=== PATIENT | male | born 1995 | race Caucasian/White ===

== ENCOUNTER 2017-05-04 16:26 | Emergency (ER) | payer MEDICAID ==
[~2017-05-04] VITALS: Ht 167.6 cm; Wt 64.4 kg
[2017-05-04 16:32] VITALS: BP 144/87; PULSE 100; RESP 18; TEMP 98; O2SAT 100
--- NOTE | 2017-05-04 17:08 | PD ---
HPI Chief Complaint: Skin Problem Time Seen by Provider: 17:08 Travel History International Travel<30 days: No Contact w/Intl Traveler<30days: No Traveled to known affect area: No PFSH Past Medical History Anxiety: Yes Depression: Yes Chest Pain: No Coronary Artery Disease: No Diabetes: No Diminished Hearing: No Musculoskeletal: Yes (lt shoulder ) Immunizations Current: Yes Past Surgical History Other Surgery: Yes (lt shoulder 2013) Social History Alcohol Use: Yes (beer occ) Tobacco Use: Yes (2 PPD) Substance Use: Yes (K2, liza in past per old record) Allergies-Medications (Allergen,Severity, Reaction): Coded Allergies: No Known Allergies (Verified , 10/20/16) Reported Meds & Prescriptions Reported Meds & Active Scripts Active No Active Prescriptions or Reported Medications Data Data Last Documented VS Vital Signs Date Time Temp Pulse Resp B/P (MAP) Pulse Ox O2 Delivery O2 Flow Rate FiO2 05/04/17 16:32 98.0 100 18 144/87 (106) 100 MDM Scripts No Active Prescriptions or Reported Meds Michelle Boland MD May 04, 2017 17:08
--- NOTE | 2017-05-04 17:16 | PD ---
HPI Chief Complaint: Skin Problem Time Seen by Provider: 17:20 Travel History International Travel<30 days: No Contact w/Intl Traveler<30days: No Traveled to known affect area: No History of Present Illness HPI 21-year-old male assessed to the emergency department complaining of a rash that started on his left elbow and has spread to other parts of his body to include his right axilla, back, bilateral arms. This started about 1-1/2 weeks ago and he is concerned about a staph infection. States it is mildly pruritic, nonpainful and non-blistering. He denies any new soaps, foods, travel, IVDU. Says his hygiene is good, denies any new furniture or linen, and lives alone. Denies fever, chills, chest pain, nausea, vomiting, diarrhea. This is the first occurrence. PFSH Past Medical History Anxiety: Yes Depression: Yes Chest Pain: No Coronary Artery Disease: No Diabetes: No Diminished Hearing: No Musculoskeletal: Yes (lt shoulder ) Immunizations Current: Yes Past Surgical History Other Surgery: Yes (lt shoulder 2013) Social History Alcohol Use: Yes (beer occ) Tobacco Use: Yes (2 PPD) Substance Use: Yes (K2, liza in past per old record) Allergies-Medications (Allergen,Severity, Reaction): Coded Allergies: No Known Allergies (Verified , 10/20/16) Reported Meds & Prescriptions Reported Meds & Active Scripts Active Nystop Topical (Nystatin Topical) 100,000 Unit/Gm Powd 1 Applic TOPICAL Q12HR Use powder in armpits and groin Bactrim DS (Sulfamethoxazole-Trimethoprim) 800-160 Mg Tab 1 Tab PO BID Review of Systems Except as stated in HPI: all other systems reviewed are Neg Physical Exam Narrative GENERAL: Well-developed well-nourished SKIN: Focused skin assessment warm/dry. Face: multiple areas of papules, irritation, erythema without excoriations. Left posterior elbow: 1-3 cm plaques becoming confluent without lymphangiopathic spread. Right axilla: Multiple lesions approximately 5 mm raised in a 7 cm area, with small lesions steading outward. Left lower back/hip: Similar appearance to elbow with scabbing. Mild excoriations without evidence of cellulitis. No obvious burrows interdigital areas HEAD: Atraumatic. Normocephalic. EYES: Pupils equal and round. No scleral icterus. No injection or drainage. ENT: No nasal bleeding or discharge. Mucous membranes pink and moist. No lesions present. NECK: Trachea midline. No JVD. CARDIOVASCULAR: Regular rate and rhythm. No murmur appreciated. RESPIRATORY: No accessory muscle use. Clear to auscultation. Breath sounds equal bilaterally. GASTROINTESTINAL: Abdomen soft, non-tender, nondistended. Hepatic and splenic margins not palpable. MUSCULOSKELETAL: No obvious deformities. No clubbing. No cyanosis. No edema. NEUROLOGICAL: Awake and alert. No obvious cranial nerve deficits. Motor grossly within normal limits. Normal speech. PSYCHIATRIC: Appropriate mood and affect; insight and judgment normal. Data Data Last Documented VS Vital Signs Date Time Temp Pulse Resp B/P (MAP) Pulse Ox O2 Delivery O2 Flow Rate FiO2 05/04/17 16:32 98.0 100 18 144/87 (106) 100 MDM Medical Decision Making Medical Screen Exam Complete: Yes Emergency Medical Condition: Yes Differential Diagnosis Staphylococcal skin infection versus allergic dermatitis versus contact dermatitis Narrative Course 21-year-old male here or evaluation of a rash x one and half weeks. He has not tried anything at home to relieve his rash On exam the left posterior elbow exhibited scaling, mild erythema without lymphangitic Spread. Other portions include his left lower back with a similar appearance to his elbow. Right axilla demonstrated multiple erythematous lesions consistent with consistent with intertrigo Was take all antibiotics as prescribed. Powder for his axilla. Sling Operator and primary care physician for follow-up Advised to return to the emergency department if symptoms worsen. Diagnosis Primary Impression: Rash and nonspecific skin eruption Referrals: Sling Operator Primary Care Physician Additional Instructions: Use an antibacterial soap daily to cleanse the skin. Use the powder for your arm pits. Take all All antibiotics as prescribed. Follow up with a cash register mechanic and your primary care physician. If skin becomes more red, swelling or pus develops or if you develop fever or chills return to the emergency department for further treatment and evaluation Scripts Nystatin Topical (Nystop Topical) 100,000 Unit/Gm Powd 1 APPLIC TOPICAL Q12HR for Infection, #15 GM 0 Refills Use powder in armpits and groin Prov: Michelle Boland MD 05/04/17 Sulfamethoxazole-Trimethoprim (Bactrim DS) 800-160 Mg Tab 1 TAB PO BID for Infection, #14 TAB 0 Refills Prov: Michelle Boland MD 05/04/17 Disposition: 01 DISCHARGE HOME Condition: Stable Krystal Harp May 04, 2017 17:16
[2017-05-04] MEDS ORDERED: NYST10007 TOPICAL (17:18)
[2017-05-04] MEDS ORDERED: BACT800T5 PO (17:18)
== END 2017-05-04 17:42 | disposition home or self-care (01) ==
LOC: PHED 16:26
DX: R21 Rash and other nonspecific skin eruption (principal); F17.210 Nicotine dependence, cigarettes, uncomplicated
CPT/HCPCS: 99284

== ENCOUNTER 2017-10-03 03:16 | Emergency (ER) | payer MEDICAID, OTHER ==
[~2017-10-03] VITALS: Ht 172.7 cm; Wt 60.0 kg
[~2017-10-03 03:16] MED LIST: BACT800T5 PO; NYST10007 TOPICAL
[2017-10-03 03:26] VITALS: BP 136/74; PULSE 115; TEMP 98.2; O2SAT 97
--- NOTE | 2017-10-03 03:36 | PD ---
HPI Chief Complaint: Injury Time Seen by Provider: 03:32 Travel History International Travel<30 days: No Contact w/Intl Traveler<30days: No Traveled to known affect area: No History of Present Illness HPI 22-year-old male presents to the emergency department in police custody complaining of left shoulder pain. Patient reports that during the arrest he was injured and injured his left shoulder and clavicle. Patient states she has required surgical repair of his clavicle in the past. Patient states that at the side of the upper chest/clavicle area he also has chest pain. Patient denies other concerns or complaints. No voiced report of upper extremity numbness tingling or weakness. No report of head injury neck pain abdominal pain rib pain back pain or other extremity injury. 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) Allergies-Medications (Allergen,Severity, Reaction): Coded Allergies: No Known Allergies (Verified , 10/20/16) Reported Meds & Prescriptions Reported Meds & Active Scripts Active Nystop Topical (Nystatin Topical) 100,000 Unit/Gm Powd 1 Applic TOPICAL Q12HR Use powder in armpits and groin Bactrim DS (Sulfamethoxazole-Trimethoprim) 800-160 Mg Tab 1 Tab PO BID No Active Prescriptions or Reported Medications Review of Systems Except as stated in HPI: all other systems reviewed are Neg General / Constitutional: No: Fever HENT: No: Congestion Cardiovascular: Positive: Chest Pain or Discomfort Respiratory: No: Shortness of Breath Gastrointestinal: No: Abdominal Pain Musculoskeletal: Positive: Pain, No: Myalgias, Arthralgias Skin: No Rash (Left shoulder) Neurologic: No: Weakness Psychiatric: No: Anxiety Hematologic/Lymphatic: No: Lymph Node Enlargement Physical Exam Narrative GENERAL: Well-developed well-nourished male no acute distress no respiratory distress; GCS 15; patient is handcuffed to stretcher SKIN: Warm and dry. HEAD: Normocephalic. EYES: No scleral icterus. No injection or drainage. NECK: Supple, trachea midline. No JVD or lymphadenopathy. CARDIOVASCULAR: Regular rate and rhythm without murmurs, gallops, or rubs. RESPIRATORY: Breath sounds equal bilaterally. No accessory muscle use. GASTROINTESTINAL: Abdomen soft, non-tender, nondistended. MUSCULOSKELETAL: No cyanosis, or edema. Attention left upper chest/clavicle evidence of previous scar no deformity left shoulder no bony step-off or deformity noted distally left upper extremity is neurovascular tendon intact. Capillary refill is brisk and less than 2 seconds radial ulnar pulses 2+ to palpation. BACK: Nontender without obvious deformity. No CVA tenderness. Data Data Last Documented VS Vital Signs Date Time Temp Pulse Resp B/P (MAP) Pulse Ox O2 Delivery O2 Flow Rate FiO2 10/03/17 04:08 Room Air 10/03/17 03:26 98.2 115 136/74 (94) 97 Orders Orders Chest, Single Ap (10/03/17 ) Shoulder, Limited(2vws) (10/03/17 ) [facility] Medical Decision Making Medical Screen Exam Complete: Yes Emergency Medical Condition: Yes Medical Record Reviewed: Yes Interpretation(s) CXR: No acute abnormality no pneumothorax no rib fracture evidence of previous clavicle repair Left shoulder x-ray: Mild AC separation no shoulder dislocation no acute fracture Differential Diagnosis Shoulder contusion sprain strain clavicle fracture rib fracture or pneumothorax chest wall contusion Narrative Course Imaging study of the chest and left shoulder ordered Diagnosis Primary Impression: Contusion of left shoulder Referrals: Orthopaedic Surgeon call for appointment Patient Instructions: General Instructions Additional Instructions: Apply ice pack to shoulder intermittently for first 12-24 hrs. May use sling 24 hours Return to the emergency department for concerns or change in condition May use ibuprofen/Advil/Motrin 600 mg as often as every 6 hours as needed for pain Associates inflammation Disposition: [address] LAW ENFORCEMNT Condition: Stable Aretha Estrada MD Oct 03, 2017 03:36
[2017-10-03] MEDS ORDERED: IBUPROFEN 600 MG TAB PO ONE (04:45)
--- NOTE | 2017-10-03 04:45 | RADRPT ---
EXAM DATE/TIME: 10/03/2017 03:54 [facility] COMPARISON: No previous studies available for comparison. INDICATIONS : Short of breath. MEDICAL HISTORY : None. SURGICAL HISTORY : None. ENCOUNTER: Initial ACUITY: 1 day PAIN SCORE: 0/10 LOCATION: Bilateral chest FINDINGS: Portable AP view of the chest demonstrates a normal-sized cardiac silhouette. No effusion, consolidat ion, or pneumothorax is visualized. The bones and soft tissues demonstrate no acute abnormality. Ther e is a side plate with multiple interlocking screws across the left clavicle. CONCLUSION: No acute cardiopulmonary abnormality is identified. Devendra Nevarez MD on October 03, 2017 at 4:43 Board Certified Radiologist. This report was verified electronically.
--- NOTE | 2017-10-03 04:48 | RADRPT ---
EXAM DATE/TIME: 10/03/2017 03:55 [facility] COMPARISON: SHOULDER LEFT COMPLETE (>2VWS), October 21, 2016, 0:09. INDICATIONS : Left shoulder pain post fall. MEDICAL HISTORY : None. SURGICAL HISTORY : ORIF left clavicle. ENCOUNTER: Initial ACUITY: 1 day PAIN SCORE: 10/10 LOCATION: Left shoulder. FINDINGS: 2 views of the left shoulder demonstrate no fracture or dislocation. The acromioclavicular joint is i ntact. There is a metallic side plate with multiple interlocking screws across the distal left clavic le. There are no findings to indicate hardware failure or loosening. No soft tissue abnormality is se en. Left chest wall demonstrates no acute finding. CONCLUSION: No acute left shoulder abnormality is identified on this two-view examination. Devendra Nevarez MD on October 03, 2017 at 4:45 Board Certified Radiologist. This report was verified electronically.
== END 2017-10-03 05:21 ==
LOC: NEPC 03:16
DX: S40.012A Contusion of left shoulder, initial encounter (principal); F41.9 Anxiety disorder, unspecified; F32.9 Major depressive disorder, single episode, unspecified; F17.200 Nicotine dependence, unspecified, uncomplicated; Z79.899 Other long term (current) drug therapy; Y35.813A Legal intervention involving manhandling, suspect injured, initial encounter
CPT/HCPCS: 71045; 73030; 99284